=== PATIENT | male | born 1950 | race Caucasian/White ===

== ENCOUNTER 2018-05-04 20:24 | Inpatient (IN) ==
[2018-05-04] MEDS ORDERED: ONDANSETRON 4 MG/2 ML INJECTION IVP ONE (20:46)
[2018-05-04] MEDS ORDERED: FentaNYL 100 MCG/2 ML INJECTION IVP ONE (20:46)
[2018-05-04] MEDS ORDERED: PANTOPRAZOLE 40 MG INJECTION IVP ONE (20:46)
--- NOTE | 2018-05-04 20:50 | Emergency Department Report ---
GI Bleed HPI - General Chief complaint: Dizziness Stated complaint: black stool dizziness Time Seen by Provider: 05/04/18 20:46 Source: patient, family, RN notes reviewed, old records reviewed Mode of arrival: ambulatory Limitations: no limitations - History of Present Illness HPI Narrative: 68yo man presents to the ER for evaluation of an acute GI bleed. Pt has had several black, tarry stools today. In addition, pt has become dizzy and weak today. Pt is on hospice for end stage CHF, COPD, and ACS. He moved up to [place] from [place] to be with family. Pt has had two GI bleeds in the past (the first requiring 2 units PRBCs, the second required 5 units PRBCs). Pt continues to take a blood thinner and daily 81mg ASA. Is not on any GI prophylaxis for bleeds. MD complaint: melena Onset (ago): hour(s) Consistency: constant Severity: similar to previous episodes Relieving factors: none Exacerbating factors: none Context: history of GI bleed Treatments Prior to Arrival: none - Related Data Home Medications Medication Instructions Recorded Confirmed Albuterol HFA Inhaler [Ventolin 1 puff ORAL INH QID PRN 05/04/18 05/04/18 Hfa 90 mcg/actuation] Aspirin [Adult Aspirin Regimen] 81 mg PO DAILY 05/04/18 05/04/18 Clopidogrel [Plavix] 75 mg PO DAILY 05/04/18 05/04/18 Gabapentin [Neurontin] 600 mg PO TID 05/04/18 05/04/18 Hydrocodone/Acetaminophen 1 tab PO Q4H PRN 05/04/18 05/04/18 [Hydrocodon-Acetaminophn 10-325] Hydromorphone [Dilaudid] 1 - 2 mg PO Q2H PRN 05/04/18 05/04/18 Morphine Sulfate 30 mg PO BID PRN 05/04/18 05/04/18 Nitroglycerin [Nitrostat] 0.4 mg SL Q5M PRN 05/04/18 05/04/18 Ondansetron [Zofran Odt] 8 mg PO TID 05/04/18 05/04/18 Polyethylene Glycol 3350 17 gm PO DAILY 05/04/18 05/04/18 Ranolazine SR [Ranexa] 500 mg PO DAILY 05/04/18 05/04/18 Sennosides [Senna] 8.6 mg PO DAILY 05/04/18 05/04/18 Allergies Allergy/AdvReac Type Severity Reaction Status Date / Time No Known Allergies Allergy Verified 05/04/18 21:05 Review of Systems All systems: reviewed and negative except as stated Gastrointestinal: Reports: as per HPI, melena. Denies: abdominal pain, nausea, vomiting, diarrhea, constipation, hematemesis, hematochezia Neurological: Reports: as per HPI, weakness, vertigo. Denies: headache, numbness, paresthesias, confusion, abnormal gait Physical Exam - Limitations Limitations: no limitations - General General appearance: alert, in no apparent distress, cachectic - Head Head exam: atraumatic, normocephalic, normal inspection - Eye Eye exam: Present: normal appearance, PERRL, EOMI, scleral icterus - ENT ENT exam: Present: normal exam, normal oropharynx, mucous membranes moist, normal external ear exam - Neck Neck exam: Present: normal inspection, full ROM, trachea midline. Absent: tenderness - Chest Chest inspection: Present: normal inspection, symmetric chest wall rise. Absent : tenderness, rash - Respiratory Respiratory exam: Present: wheezes. Absent: normal lung sounds bilaterally, respiratory distress, stridor, prolonged expiratory phase, crackles - Cardiovascular Cardiovascular exam: Present: regular rate, normal rhythm, normal heart sounds. Absent: rubs, gallop, clicks - Abdominal Exam Abdominal exam: Present: soft, normal bowel sounds. Absent: distention, tenderness, guarding, rebound, rigidity - Rectal Exam Rectal exam: Present: deferred - Extremities Exam Extremities exam: Present: normal inspection, full ROM, normal capillary refill. Absent: tenderness, pedal edema - Skin Skin exam: Present: warm, dry, intact, pallor. Absent: rash - Neurological Exam Neurological exam: Present: alert, oriented X3, CN II-XII intact, normal gait, reflexes normal - Psychiatric Psychiatric exam: Present: flat affect Course - Consultations Consultation #1: Ronnell Telemed: Will admit as inpt. Time: 22:26 Vital Signs Pulse Rate 75 05/04/18 20:30 Respiratory Rate 20 05/04/18 20:30 Blood Pressure 167/92 H 05/04/18 20:30 Pulse Oximetry 100 05/04/18 20:30 Pulse Rate 75 05/04/18 20:30 Respiratory Rate 20 05/04/18 20:30 Blood Pressure 167/92 H 05/04/18 20:30 Pulse Oximetry 100 05/04/18 20:30 GI Bleed - MDM Narrative Medical decision making narrative: Pt with a recurrent GI bleed. Will need obs and may need txfusion. Hospitalist will admit. - Differential Diagnosis Likely: hemorrhoids, infectious diarrhea, gastritis, Upper gastrointestinal hemorrhage, Lower gastrointestinal hemorrhage, hematochezia, melena - Medical Records Attestation: I reviewed the patient's medical records. - Lab Data Attestation: I reviewed the patient's lab results. Result diagrams: 05/06/18 03:46 05/06/18 03:46 Disposition Clinical Impression: GI bleed Qualifiers: GI bleed type/associated pathology: gastric ulcer Qualified Code(s): K25.4 - Chronic or unspecified gastric ulcer with hemorrhage Disposition: To [facility] Acute Care Condition: Stable Time of Disposition: 22:32 - Seen By: physician
[2018-05-04] MEDS ORDERED: NS 1,000 ML IV SCH (21:00)
[2018-05-04] MEDS: SALINE FLUSH 10ml SYRINGE IVF PRN ×2 (21:10→22:39)
[2018-05-04] MEDS ORDERED: FentaNYL 100 MCG/2 ML INJECTION IVP PRN (22:16)
[2018-05-04] MEDS ORDERED: ONDANSETRON 4 MG/2 ML INJECTION IVP PRN (23:10)
--- NOTE | 2018-05-04 23:53 | History & Physical Report ---
History of Present Illness Date: 05/08/18 Chief complaint: abdominal pain HPI: Patient seen via telemedicine with nursing assistance on 05/04/2018 Mr. Morales is a 68 yo man with h/o hospice for CAD and ischemic CM, HTN, COPD, continued tobacco abuse, GI bleeds in the past due to PUD over 2 years ago while in [place] who presents with abdominal pain. Lives in [place], [place], but came to [facility]. Notes 3 days abd pain more below the umbilicus, N/V with last emesis yesterday and not michael blood. No fevers or chills. Orthopnea but no syncope. Daily CP with no SOB. No recent medication changes. Chronic opiod dependence for chronic back pain as well. Review of Systems All systems PM: 10-point ROS was reviewed, no additional remarkable complaints except Past Medical History Surgical History: still has GB and appendix Family History Updates: sister of CAD, mother from accident and father from cirrhosis Family History: Other (as documented) - Social History Smoking status: Current every day smoker Current occupational status: retired Current residence: Apartment/Private Home Medications Home Medications Medication Instructions Recorded Confirmed Type Albuterol HFA Inhaler [Ventolin 1 puff ORAL INH QID PRN 05/04/18 05/04/18 History Hfa 90 mcg/actuation] Gabapentin [Neurontin] 600 mg PO TID 05/04/18 05/04/18 History Hydrocodone/Acetaminophen 1 tab PO Q4H PRN 05/04/18 05/04/18 History [Hydrocodon-Acetaminophn 10-325] Hydromorphone [Dilaudid] 1 - 2 mg PO Q2H PRN 05/04/18 05/04/18 History Morphine Sulfate 30 mg PO BID PRN 05/04/18 05/04/18 History Nitroglycerin [Nitrostat] 0.4 mg SL Q5M PRN 05/04/18 05/04/18 History Ondansetron [Zofran Odt] 8 mg PO TID 05/04/18 05/04/18 History Ranolazine SR [Ranexa] 500 mg PO DAILY 05/04/18 05/04/18 History Sennosides [Senna] 8.6 mg PO DAILY 05/04/18 05/04/18 History Nicotine Patch [Nicoderm] 14 mg TD DAILY PRN #10 patch 05/08/18 Rx Pantoprazole Tab [Protonix Tab] 1 tab PO ACBID #30 tab 05/08/18 Rx Polyethylene Glycol 3350 17 gm PO DAILY PRN #0 05/08/18 05/04/18 Rx Sucralfate [Carafate] 1 gm PO ACHS #120 tab 05/08/18 Rx Allergies Allergy/AdvReac Type Severity Reaction Status Date / Time No Known Allergies Allergy Verified 05/04/18 21:05 Exam Vital Signs: Temperature 98.6 F 05/04/18 23:10 Pulse Rate 60 05/04/18 23:10 Respiratory Rate 18 05/04/18 23:10 Blood Pressure 132/79 05/04/18 23:10 Pulse Oximetry 100 05/04/18 23:10 Telemetry Rhythm: Sinus Rhythm Height/Weight/BMI: Height 1.78 m Weight 53.6 kg Body Mass Index 16.9 - Constitutional Present: no acute distress - Routine HEENT Exam Head: Present: normocephalic, atraumatic Eye: Present: EOMI, PERRL - Routine Neck Exam Present: full ROM - Routine Respiratory Exam Present: CTA bilaterally. Absent: accessory muscle use - Routine Cardiovascular Exam Present: RRR, S1, S2, no murmur - Routine Abdominal Exam Present: soft Comments: hyperactive bowel sounds and tender with no guarding - Routine Extremities Exam Absent: cyanosis, clubbing - Routine Neurological Exam Present: alert, oriented X3, CN II-XII intact Results - Labs CBC & Chem 7: 05/08/18 04:09 05/08/18 04:09 Assessment and Plan Assessment and Plan: 1. Acute abdominal pain and likely GI bleed--hydrate with repeat AM labs and may need CT and gen surgery eval in the AM. Heme test stools and dose PPI IV. Clear liquids only with prns. 2. CAD and ischemic CM--hold asa and plavix, continue other meds. On hospice for this. 3. COPD--prn nebs with no routine Spiriva, other. 4. Acute blood loss anemia with macrocytosis noted. With other lineages ok will check B12. 5. Tobacco abuse, ongoing. Prn nicotine 6. Chronic back pain with opiod dependence DNR Please see H&P from same admission. Dr. Emanuel DVT Prophylaxis: SCD's - Physician Narrative Narrative: Date: 05/04/18 Time: 2349 Hospital Course Summary Disclaimer: The visit summary below is not to be considered part of the above Progress Note.
[2018-05-04] MEDS ORDERED: ALBUTEROL/IPRATROPIUM 2.5mg-0.5mg/3ml NEB AEROSOL PRN (23:59)
[2018-05-05] MEDS: SALINE FLUSH 10ml SYRINGE IVF PRN ×2 (00:02→07:49)
[2018-05-05] MEDS: NS 1,000 ML IV SCH ×2 (00:02→07:59)
[2018-05-05] MEDS: HYDROCODONE/APAP 10 MG/325 MG TABLET PO PRN ×2 (00:08→05:28)
[2018-05-05] MEDS: MORPHINE SULFATE 2mg INJECTION IVP PRN ×3 (00:09→07:48)
[2018-05-05] MEDS: NITROGLYCERIN 0.4 MG SUBLINGUAL TABLET SL PRN ×2 (05:05→05:14)
--- NOTE | 2018-05-05 09:06 | History & Physical Report ---
History of Present Illness Date: 05/05/18 Chief complaint: Black colored stools HPI: Jhoan Morales is a 68 y/o male who has been on hospice services for the last 15 mos. for CAD, CHF, and COPD. He has lived in [facility] for the last 2 years but prior to that was living in [place]. He reports having 4 black, tarry stools over the last 3 days. He tends to be constipated at baseline. He's also had lower abdominal burning. He has had nausea/vomiting without hematemesis. He's felt weak, dizzy but denies syncope. He has a chronic "smoker's cough" and actually his sputum has now changed to clear (previously was green/yellow). He has chronic SOA and that is unchanged. He is on 2L of O2 continuously though admits he sometimes takes it off during the day. He frequently has chest pain and takes NTG. He has chronic low back pain secondary to DDD. He's lost about 40 lbs in the last 6 mos. ROS was otherwise negative: No visual changes, headaches , sinus drainage, GERD, leg/joint swelling, rashes/wounds, falls, urinary pain/ retention/frequency, unexplained bruising, anxiety/depression, sweating, fevers/ chills, palpitations. He has had 2 previous GI bleeds in the past including an ulcer around 2014. He states that he wishes to come off hospice and be treated for GI bleed with transfusions/procedures as indicated. He presented to [facility] ED for evaluation. Hgb on admit was 11.4 and by the following morning trended down to 9.9. Labs otherwise were unremarkable. He was admitted as an inpt to [facility] via the telehosp service -- please refer to the initial H&P for more information. Review of Systems All systems PM: 10-point ROS was reviewed, no additional remarkable complaints except Past Medical History Medical History Updates: CHF, ischemic cardiomyopathy. CAD, PVD. COPD on 2L O2 continuously. Chronic back pain d/t DDD. Hx of bleeding ulcer, ~2014 Surgical History: Multiple heart catheterizations, has 11 stents. B/L leg stents. EGD, colonoscopy ~2014. CABG x3 in 2002. Pacemaker - turned off Family History Updates: sister of CAD ( at age 62), mother from accident (fell in the tub and hit her head causing a head bleed), and father from cirrhosis/liver failure from EtOH abuse - unsure of ages of of mother and father. 1 brother of an infection that resulted in "yellow jaundice". 1 brother committed suicide. 2 sisters alive and well Family History: Other (as documented) - Social History Smoking status: Current every day smoker Packs per day: 0.5 Packs-years: 40 Substance use type: does not use Alcohol intake frequency: does not drink Household members: spouse Current occupational status: retired Previous occupational history: truck and transport mechanic Current residence: Apartment/Private Home Medications Home Medications Medication Instructions Recorded Confirmed Type Albuterol HFA Inhaler [Ventolin 1 puff ORAL INH QID PRN 05/04/18 05/04/18 History Hfa 90 mcg/actuation] Aspirin [Adult Aspirin Regimen] 81 mg PO DAILY 05/04/18 05/04/18 History Clopidogrel [Plavix] 75 mg PO DAILY 05/04/18 05/04/18 History Gabapentin [Neurontin] 600 mg PO TID 05/04/18 05/04/18 History Hydrocodone/Acetaminophen 1 tab PO Q4H PRN 05/04/18 05/04/18 History [Hydrocodon-Acetaminophn 10-325] Hydromorphone [Dilaudid] 1 - 2 mg PO Q2H PRN 05/04/18 05/04/18 History Morphine Sulfate 30 mg PO BID PRN 05/04/18 05/04/18 History Nitroglycerin [Nitrostat] 0.4 mg SL Q5M PRN 05/04/18 05/04/18 History Ondansetron [Zofran Odt] 8 mg PO TID 05/04/18 05/04/18 History Polyethylene Glycol 3350 17 gm PO DAILY 05/04/18 05/04/18 History Ranolazine SR [Ranexa] 500 mg PO DAILY 05/04/18 05/04/18 History Sennosides [Senna] 8.6 mg PO DAILY 05/04/18 05/04/18 History Allergies Allergy/AdvReac Type Severity Reaction Status Date / Time No Known Allergies Allergy Verified 05/04/18 21:05 Exam Vital Signs: Temperature 97.6 F 05/05/18 08:26 Pulse Rate 64 05/05/18 08:26 Respiratory Rate 18 05/05/18 08:26 Blood Pressure 132/85 05/05/18 08:26 Pulse Oximetry 100 05/05/18 08:26 Height/Weight/BMI: Height 1.78 m Weight 78.2 kg Body Mass Index 16.9 - Constitutional Present: no acute distress, well nourished, well developed, thin - Routine HEENT Exam Head: Present: normocephalic Eye: Present: PERRL. Absent: scleral injection ENT: Present: mucous membranes moist, oropharynx clear. Absent: dentition normal - Routine Neck Exam Present: supple - Routine Respiratory Exam Present: CTA bilaterally - Routine Cardiovascular Exam Present: RRR, S1, S2 Comments: pacemaker left chest sternotomy scar - Routine Abdominal Exam Present: soft, normoactive bowel sounds, tenderness (mild suprapubic), non distended - Routine Extremities Exam Present: no edema - Routine Skin Exam Present: intact, dry, pallor, warm - Routine Neurological Exam Present: alert, oriented X3, CN II-XII intact, moving all extremities, vision grossly intact, hearing grossly intact, normal speech. Absent: sensory deficit , motor deficit, altered mental status, facial asymmetry - Routine Psychiatric Exam Present: normal affect, normal thought process, cooperative Results - Labs CBC & Chem 7: 05/05/18 11:53 05/05/18 04:07 Assessment and Plan (1) GI bleed Current visit: Yes Status: Acute (2) Acute blood loss anemia Current visit: Yes Status: Acute Assessment and Plan: Assessment GI bleed ABLA, macrocytic anemia End stage CHF, ischemic cardiomyopathy, CAD - on hospice until 05/04/18 PVD COPD on 2L O2 continuously Chronic back pain d/t DDD Hx of bleeding ulcer, ~2014 Tobacco use Plan Admit, inpt status under the hosp service. Clear liquid diet. Consult Dr. Comer (discussed case with him). Hold ASA, Plavix. Trend hgb. Vit B12 ordered d/t macrocytosis. Protonix BID. DC IVF d/t significant cardiac hx. Resume meds for angina/chronic pain. Pt declined tobacco cessation. Nicotine patch PRN. Neb treatments PRN. Call placed to Dr. Lisa's office in [place] for more information regarding his medical diagnoses and to determine overall risk for anesthesia in the event EGD is indicated. DNR status. Hospice care revoked to treat this acute condition but likely will inquire about re-enrolling upon discharge. Note: Pacemaker has been deactivated. 05/05/2018-11:59 AM-I examined the patient independently. I reviewed this chart , the patient history, and the PAYABLE PROCESSOR's/PA's documented findings as above. We discussed and formulated the assessment and plan as above with the additions below.-Dr. Emanuel The patient states he has not felt well for the past 3 days or so. He's had a couple episodes of emesis which looked like bile. No blood or coffee-ground appearance. He has had 4 episodes of melena but no red bloody stool. He has chronic shortness of breath which is unchanged. He's felt a little lightheaded when he stands up and weak for about a month. He has chest pain through 4 times a week but noticed chest pain yesterday and this morning and he thinks this is a little more frequent than usual. He states he is on hospice for his heart disease and was told there was nothing else that could be done other than medications. His last stent was about 15 months ago. He has history of peripheral vascular disease and also has history of what sounds like gastric ulcer requiring cauterization. He has been taking aspirin and Plavix as prescribed but is not taking any other NSAIDs. He is on chronic narcotics for pain. States he does have COPD and is chronically on 2 L of oxygen. He is not on breathing treatments. On exam he is alert and oriented and in no acute distress. HEENT reveals pupils to be equal and sclerae are anicteric. Or paroxysmal moist. Neck is supple. Chest reveals some mild coarse breath sounds and he coughs with deep inspiration. Cardiovascular reveals a regular rate and rhythm without significant murmur. Abdomen is soft and nondistended. He has positive bowel sounds. He has some mild tenderness in the suprapubic area. He denies any dysuria. Extremities are free of edema. Skin is warm and dry and without rashes. Hemoglobin on admission was 11.4. He has been on IV fluids. Most recent hemoglobin this morning was 9.9. Repeat hemoglobin is pending. INR and PTT were normal. Impression GI bleed with melena, history of gastric ulcer, significant atherosclerosis, patient is at risk for gastric or duodenal ulcer and also at risk for ischemic colitis with his known peripheral vascular disease. Nausea and vomiting Lower abdominal pain Coronary artery disease for which she has had 11 stents, the last one 15 months ago. He is currently on hospice for heart disease. Ischemic cardiomyopathy Probable COPD-currently on 2 L Plan Clear liquid diet. Hold aspirin and Plavix for now. Check P2 Y 12. Consult Dr. Hernandez. IV Protonix. Have blood on hold. Transfuse if needed. I would likely give him blood if hemoglobin is less than 9 and certainly if less than 8 given his coronary artery disease. DC IV fluids and monitor for fluid overload. Recheck basic metabolic and CBC tomorrow. We'll check a UA regarding suprapubic pain, although this pain is likely related to his GI bleeding DVT Prophylaxis: SCD's GI Prophylaxis: Protonix Resuscitation Status: Do Not Resuscitate - Physician Narrative Narrative: Date: 05/05/18 Time: 900 Hospital Course Summary Disclaimer: The visit summary below is not to be considered part of the above Progress Note. Hospital Course: 05/04/18 1. Acute abdominal pain and likely GI bleed--hydrate with repeat AM labs and may need CT and gen surgery eval in the AM. Heme test stools and dose PPI IV. Clear liquids only with prns. 2. CAD and ischemic CM--hold asa and plavix, continue other meds. On hospice for this. 3. COPD--prn nebs with no routine Spiriva, other. 4. Acute blood loss anemia with macrocytosis noted. With other lineages ok will check B12. 5. Tobacco abuse, ongoing. Prn nicotine 6. Chronic back pain with opioid dependence DNR 05/05/18 Admit, inpt status under the hosp service. Clear liquid diet. Consult Dr. Comer (discussed case with him). Hold ASA, Plavix. Trend hgb. Vit B12 ordered d/t macrocytosis. Protonix BID. DC IVF d/t significant cardiac hx. Resume meds for angina/chronic pain. Pt declined tobacco cessation. Nicotine patch PRN. Neb treatments PRN. Call placed to Dr. Lisa's office in [place] for more information regarding his medical diagnoses and to determine overall risk for anesthesia in the event EGD is indicated. DNR status. Hospice care revoked to treat this acute condition but likely will inquire about re-enrolling upon discharge. Note: Pacemaker has been deactivated.
[2018-05-05] MEDS: RANOLAZINE 500 MG PO SCH (09:20)
[2018-05-05] MEDS: PANTOPRAZOLE 40 MG INJECTION IVP SCH ×2 (09:20→21:09)
[2018-05-05] MEDS: GABAPENTIN 600 MG TABLET PO SCH ×3 (09:21→21:09)
[2018-05-05] MEDS: NICOTINE 14 MG PATCH TD PRN (09:21)
[2018-05-05] MEDS: HYDROMORPHONE 2 MG TABLET PO PRN ×3 (09:21→21:09)
[2018-05-05] MEDS: NICOTINE PATCH REMOVAL TD SCH ×2 (09:22→17:21)
--- NOTE | 2018-05-05 16:34 | XRay Report ---
Indication: CAD XR chest 1V: Comparison: None Technique: AP upright portable chest Findings: Patient shows prior median sternotomy and a permanent pacemaker with normal heart and central vascularity. No acute pulmonary findings are seen. Lungs are somewhat hyperaerated. No acute bony findings. Impression: 1. Postop changes of previous coronary artery bypass grafting and a permanent pacemaker without acute cardiac decompensation. 2. Mildly hyperaerated but clear lungs .
--- NOTE | 2018-05-05 16:42 | Consultation ---
DATE OF CONSULTATION 05/05/2018 HISTORY OF PRESENT ILLNESS This patient is 68 years old. He noticed the appearance of some black stools about three days ago. He was experiencing weakness, fatigue and dizziness. The patient was brought to [facility] emergency room for evaluation of these symptoms on the evening of 05/04/2018. Hemoglobin was 10.2 at evaluation at the emergency room. Hematocrit was 30.8. The patient states that he has been having some lower abdominal pain located at a level below the level of the umbilicus for the last 3-4 days. He denies any recent hematemesis or hematochezia. The patient was admitted to [facility] to the hospitalist service from the emergency room on the evening of 05/04/2018. The patient states that he has had two episodes of acute upper gastrointestinal tract bleeding associated with peptic ulcer disease in the past. This was at sometime around 2014. The patient states that this was two or three years ago in [place]. The patient was transfused with two units of packed red blood cells with the first episode of acute upper gastrointestinal tract bleeding. The patient was transfused with five units of packed red blood cells at the second episode of acute upper gastrointestinal tract bleeding. The patient states that he did undergo esophagogastroduodenoscopy with cauterization of an upper gastrointestinal tract bleeding point with one of these episodes. He states that the second episode of acute upper gastrointestinal tract bleeding from peptic ulcer was treated with medication. The patient did take some medication for treatment of peptic ulcer disease for a while after the most recent episode and then quit taking this medication. He has not been taking any recent medication for treatment of peptic ulcer disease. The patient states that he did undergo esophagogastroduodenoscopy two or three years ago in [place] at the time of these episodes of acute upper gastrointestinal tract bleeding. The patient states that his last colonoscopy procedure was about three years ago in [place]. The patient states he has had no previous abdominal operations. The patient did undergo a triple coronary artery bypass operation in 1999 in [place]. The patient states that he has had previous cardiac catheterization procedures with placement of 11 coronary artery stents in his heart. Some of these cardiac catheterization with placement of coronary artery stent procedures were performed in [place]. Some were performed in [place]. The patient states that the most recent cardiac catheterization with placement of coronary artery stent was performed in [place], [place] about 1-1/2 to 2 years ago. He believes this was at the [facility]. The patient states he has been told that the entire back wall of his heart muscle is . The patient is on hospice care at this time due to his cardiac disease. The patient has been anticoagulated with Plavix and aspirin prior to this hospitalization. The Plavix has been held since the patient was admitted to the hospital. PHYSICAL EXAMINATION VITAL SIGNS: Temperature is 97.7 degrees Fahrenheit oral. Pulse is 64. Respiratory rate is 18. Blood pressure is 140/79. Oxygen saturation is 100% with the patient receiving oxygen at 1 liter per minute by nasal cannula. Height is 1.78 meters. Weight is 78.2 kg. BMI is 24.7 kg/m2. ABDOMEN: There are no old incision scars. The abdomen is soft. The patient does have some bilateral lower abdominal tenderness. There is some right lower quadrant tenderness and left lower quadrant tenderness. The tenderness seems a little worse at the right lower quadrant than at the left lower quadrant. There is no left upper quadrant abdominal tenderness. There is no epigastric abdominal tenderness. RECTUM: The patient had some hard stool in the rectal vault at this time. There is a very small amount of old black blood in the rectal vault. No rectal masses. No bright red blood at rectal examination. LABORATORY DATA Hemoglobin was 11.4 and hematocrit was 34.4 at 2056 hours on 05/04/2018. Hemoglobin was 10.2 and hematocrit was 30.8 at 2154 hours on 05/04/2018. Hemoglobin was 9.9 and hematocrit was 30.2 at 0407 hours on 05/05/2018. White blood cell count was 8400 at this time. Platelet count was 319,000 at this time. Repeat hemoglobin was 10.2 at 1153 hours on 05/05/2018. IMPRESSION 1. Melena of three days' duration. 2. Anticoagulation with Plavix. 3. Anemia possibly due to gastrointestinal tract blood loss. 4. Two previous episodes of acute upper gastrointestinal tract bleeding due to peptic ulcer disease. 5. Acute lower abdominal pain and tenderness. 6. End-stage cardiac disease with coronary artery disease, congestive heart failure and ischemic cardiomyopathy. The patient has been on hospice care because of this end-stage cardiac disease. 7. Constipation. 8. Nicotine dependence. 9. Chronic obstructive pulmonary disease. 10. Chronic back pain. RECOMMENDATIONS 1. I agree with the intravenous Protonix which the patient is receiving at this time. 2. Continue to monitor hemoglobin and hematocrit. 3. The patient could be scheduled to undergo esophagogastroduodenoscopy for further evaluation of this melena if he is thought to be an acceptable candidate for this procedure from the cardiac standpoint. PATIENT EDUCATION I did talk with the patient about the possibility of undergoing esophagogastroduodenoscopy. The nature of this procedure was reviewed with the patient. Expected benefits were reviewed. Alternatives were reviewed. Potential risks and complications were reviewed including anesthetic risk, cardiac risk and risk of induced bleeding from the procedure. Questions were solicited from the patient. All of his questions were answered. PARUL
[2018-05-06] MEDS: SALINE FLUSH 10ml SYRINGE IVF PRN (08:17)
[2018-05-06] MEDS: PANTOPRAZOLE 40 MG INJECTION IVP SCH ×2 (08:17→20:43)
[2018-05-06] MEDS: RANOLAZINE 500 MG PO SCH (08:18)
[2018-05-06] MEDS: GABAPENTIN 600 MG TABLET PO SCH ×3 (08:18→20:43)
[2018-05-06] MEDS: SENNOSIDES 8.6 MG TABLET PO SCH (08:18)
[2018-05-06] MEDS: NICOTINE 14 MG PATCH TD PRN (08:21)
[2018-05-06] MEDS: NICOTINE PATCH REMOVAL TD SCH (08:22)
--- NOTE | 2018-05-06 09:34 | Cardiology Consult Note ---
History of Present Illness Consult date: 05/05/18 Requesting physician: Kim Emanuel Consult reason: congestive heart failure, pre-op evaluation Chief complaint: abdominal pain History of present illness: Jhoan is a 68 year old male with and extensive history of CAD, reportedly with 11 stents who has been on hospice services for the last 15 mos. for CAD, CHF, and COPD. He frequently has chest pain and takes NTG. He is on 2L of O2 continuously though admits he sometimes takes it off during the day. He presented to [facility] for evaluation of 4 black, tarry stools over the last 3 days with lower abdominal burning, nausea/vomiting without hematemesis. He's felt weak, dizzy but denies syncope. He has had 2 previous GI bleeds in the past including an ulcer around 2014. Hgb 11.4 on admit to [facility] but trended down to 9.9. He wishes to come off hospice and be treated for GI bleed with transfusions/procedures as indicated. He reports chronic "smoker's cough" with clear sputum, chronic SOA that is unchanged, chronic low back pain secondary to DDD. He has reportedly lost 40 lbs in the last [address] Glasgow is consulted for preprocedural evaluation of cardiac risk factors for endoscopy and we appreciate the consult. He is examined in his room on the Medical unit. He is laying flat in no distress on his usual 1L/ [place] of O2. States his chest pain is about a 3/10 and is constant most of the time. He reports his device is "turned off", referring to the ICD. Review of Systems - Constitutional Constitutional: Present: fatigue, weakness, weight loss. Absent: chills, fever( s) - EENMT Eyes: Absent: change in vision Balance: Absent: vertigo Mouth/Throat: Absent: sore throat - Cardiovascular Cardiovascular: Present: chest pain (frequently at rest), dyspnea on exertion. Absent: palpitations, syncope, orthopnea, edema Vascular: Absent: pedal edema - Respiratory Respiratory: Present: dyspnea on exertion. Absent: cough, dyspnea - Gastrointestinal Gastrointestinal: Present: abdominal pain, diarrhea, nausea. Absent: melena - Genitourinary Genitourinary: Absent: dysuria - Musculoskeletal Musculoskeletal: Present: back pain - Integumentary/Breasts Integumentary: Absent: rash - Neurological Neurological: Present: dizziness - Endocrine Endocrine: Absent: palpitations PFSH Patient Stated Medical History Cataracts Yes: both eyes Other HEENT Yes Angina Yes Congestive Heart Failure Yes Coronary Artery Disease Yes Myocardial Infarction Yes Other Cardiology Yes: triple bypass 1999 Chronic Obstructive Pulmonary Yes Disease (COPD) Pneumonia Yes Ulcer Yes Hx Kidney Stones Yes Blood Transfusions Yes Medical History Updates: CHF, ischemic cardiomyopathy. CAD, PVD. COPD on 2L O2 continuously. Chronic back pain d/t DDD. Hx of bleeding ulcer, ~2014 Surgical History: Multiple heart catheterizations, has 11 stents. B/L leg stents. EGD, colonoscopy ~2014. CABG x3 in 2002. Pacemaker - turned off Family History Updates: sister of CAD ( at age 62), mother from accident (fell in the tub and hit her head causing a head bleed), and father from cirrhosis/liver failure from EtOH abuse - unsure of ages of of mother and father. 1 brother of an infection that resulted in "yellow jaundice". 1 brother committed suicide. 2 sisters alive and well - Social History Smoking status: Current every day smoker Packs per day: 0.5 Packs-years: 40 Substance use type: does not use Alcohol intake frequency: does not drink Household members: spouse Current occupational status: retired Previous occupational history: floor installation mechanic Current residence: Apartment/Private Home Medications Home Medications Medication Instructions Recorded Confirmed Type Albuterol HFA Inhaler [Ventolin 1 puff ORAL INH QID PRN 05/04/18 05/04/18 History Hfa 90 mcg/actuation] Gabapentin [Neurontin] 600 mg PO TID 05/04/18 05/04/18 History Hydrocodone/Acetaminophen 1 tab PO Q4H PRN 05/04/18 05/04/18 History [Hydrocodon-Acetaminophn 10-325] Hydromorphone [Dilaudid] 1 - 2 mg PO Q2H PRN 05/04/18 05/04/18 History Morphine Sulfate 30 mg PO BID PRN 05/04/18 05/04/18 History Nitroglycerin [Nitrostat] 0.4 mg SL Q5M PRN 05/04/18 05/04/18 History Ondansetron [Zofran Odt] 8 mg PO TID 05/04/18 05/04/18 History Ranolazine SR [Ranexa] 500 mg PO DAILY 05/04/18 05/04/18 History Sennosides [Senna] 8.6 mg PO DAILY 05/04/18 05/04/18 History Nicotine Patch [Nicoderm] 14 mg TD DAILY PRN #10 patch 05/08/18 Rx Pantoprazole Tab [Protonix Tab] 1 tab PO ACBID #30 tab 05/08/18 Rx Polyethylene Glycol 3350 17 gm PO DAILY PRN #0 05/08/18 05/04/18 Rx Sucralfate [Carafate] 1 gm PO ACHS #120 tab 05/08/18 Rx Allergies Allergy/AdvReac Type Severity Reaction Status Date / Time No Known Allergies Allergy Verified 05/04/18 21:05 Exam Vital signs: Temperature 97.5 F 05/06/18 07:38 Pulse Rate 62 05/06/18 07:38 Respiratory Rate 20 05/06/18 07:38 Blood Pressure 121/76 05/06/18 07:38 Pulse Oximetry 98 05/06/18 07:38 - Constitutional no acute distress, well nourished, cooperative - Routine HEENT Exam Head: Present: normocephalic ENT: Present: mucous membranes moist - Routine Neck Exam Absent: JVD, carotid bruit - Routine Chest/Breast/Axilla Exam Chest wall: Present: pacemaker. Absent: tenderness - Routine Respiratory Exam Present: CTA bilaterally. Absent: rales, wheezes - Routine Cardiovascular Exam Present: RRR, no murmur. Absent: JVD - Routine Abdominal Exam Present: soft, non tender - Routine Extremities Exam Present: no edema - Routine Skin Exam Present: intact, dry, warm - Routine Neurological Exam Present: alert, oriented X3 - Routine Psychiatric Exam Present: normal affect, normal thought process Results 05/08/18 04:09 05/08/18 04:09 CBC 05/05/18 05/05/18 05/06/18 Range/Units 11:53 20:10 03:46 Hgb 10.2 L 10.0 L 11.0 L (13.5-17.5) GM/DL Comprehensive Metabolic Panel 05/06/18 Range/Units 03:46 Sodium 143 (136-146) MEQ/L Potassium 4.9 D (3.6-5) MEQ/L Chloride 110 H (98-107) MEQ/L Carbon Dioxide 29 (22-30) MEQ/L BUN 9.0 D (9-20) MG/DL Creatinine 1.1 (0.8-1.5) mg/dL Glucose 81 (75-110) MG/DL Calcium 8.7 (8.4-10.2) MG/DL Intake and Output 05/05/18 05/06/18 05/06/18 22:59 06:59 14:59 Intake Total 360 / 360 350 / 350 Output Total 1200 / 1200 1300 / 1300 Balance -840 / -840 -950 / -950 Intake: Oral 360 / 360 350 / 350 Output: Urine 1200 / 1200 1300 / 1300 Other: Urine Appearance Clear Clear Urine Color Yellow Pale Yellow Urine Odor Normal Normal # Voids 1 1 Weight 117 lb 4.575 oz Patient Weight 05/07/18 06:59 Weight 117 lb 4.575 oz - Imaging and Cardiology Imaging & Cardiology Narrative: Date of Exam: 05/05/18 Ordering Provider: Jessie Goyal APRN Type of Exam(s): XR chest 1V Reason for Exam(s): CAD Indication: CAD XR chest 1V: Comparison: None Technique: AP upright portable chest Findings: Patient shows prior median sternotomy and a permanent pacemaker with normal heart and central vascularity. No acute pulmonary findings are seen. Lungs are somewhat hyperaerated. No acute bony findings. Impression: 1. Postop changes of previous coronary artery bypass grafting and a permanent pacemaker without acute cardiac decompensation. 2. Mildly hyperaerated but clear lungs . 05/06/18 14:01 05/08/18 11:33 Date of Exam: 05/05/18 Type of Exam(s): US echo doppler complete DATE OF PROCEDURE 05/05/2018 PROCEDURE PERFORMED Transthoracic echocardiography, M-mode assessment, full color spectral Doppler assessment. FINDINGS 1. LEFT VENTRICLE. Left ventricle is mildly dilated. Normal left ventricular wall thickness noted. Left ventricular ejection fraction is moderately reduced , estimated left ventricular ejection fraction is about 35-40%. There is mid and apical anteroseptal akinesis noted and apical akinesis noted. Grade II diastolic dysfunction noted suggestive of elevated left atrial pressure and elevated left ventricular end diastolic pressure. 2. RIGHT VENTRICLE. Right ventricle appears normal in size. Normal RV wall thickness noted with normal right ventricular systolic function noted. There is device wire noted in the right ventricle. 3. RIGHT ATRIUM. Right atrium appears normal in size. There is a device wire noted in the right atrium. 4. LEFT ATRIUM. Left atrium appears mildly dilated. 5. MITRAL VALVE. Mitral valve appears structurally normal. Mild annular dilatation noted. Relative anterior mitral leaflet prolapse noted due to tethering of the posterior mitral leaflet. There is moderate mitral regurgitation noted which is eccentric, directed posteriorly and no significant mitral stenosis. 6. AORTIC VALVE. Aortic valve appears structurally normal. No significant aortic stenosis noted. No significant aortic regurgitation noted. 7. TRICUSPID VALVE. Tricuspid valve appears structurally normal. There is mild tricuspid regurgitation noted. 8. PULMONIC VALVE. Pulmonic valve poorly visualized on today's study. Trivial pulmonic regurgitation noted. 9. IVC. Inferior vena cava is mildly dilated. Normal respirophasic variation noted suggestive of only mildly elevated right atrial pressure. 10. PULMONARY ARTERY. Pulmonary artery pressure significantly elevated, estimated pulmonary artery systolic pressure of 50-55 mmHg. CONCLUSION 1. Moderate reduction of LV systolic function. Estimated LVEF of 35-40%. 2. Normal RV systolic function. 3. Moderate mitral regurgitation. 4. Significantly elevated pulmonary artery systolic pressure with estimated pulmonary artery systolic pressure of 50-55 mmHg. EKG interpretations - ME, pacemaker, normal Myocardial infarction: septal ME (old age or indeterminate), anterior ME (old age or indeterminate) Pacemaker: atrial pacing w/capture (except when refractory) Assessment and Plan - Assessment and Plan (1) GI bleed Current visit: Yes Status: Acute Patient is aware of risks of anesthesia with his degree of coronary disease. He is a high risk due to severe CAD, however if endoscopy is necessary to diagnose and treat bleeding then proceed and we will follow along in the case of complications. (2) Coronary arteriosclerosis after coronary artery bypass grafting Current visit: Yes Status: Chronic CAD with CABG 17 years ago - Multiple HCs with stent placements, most recent 01/22/2017 Lt circ and RCA - Has occasional chest pain relieved by nitro - Aspirin and Plavix on hold due to GI bleed (3) Ischemic cardiomyopathy Current visit: Yes Status: Chronic - 2D echo pending, last known EF 35-40% - Has [employer] AICD, interrogate (4) Presence of automatic implantable cardioverter-defibrillator Problem details: [employer] Current visit: Yes Status: Chronic (5) Atherosclerosis of [place] artery of both lower extremities Current visit: Yes Status: Chronic Multiple LE interventions/ peripheral stents (6) HTN (hypertension) Current visit: Yes Status: Chronic (7) COPD (chronic obstructive pulmonary disease) Current visit: Yes Status: Chronic - Assessment and Plan GI bleed Current visit: Yes Status: Acute - Patient is aware of risks of anesthesia with his degree of coronary disease. He is a high risk due to severe CAD, however if endoscopy is necessary to diagnose and treat bleeding then proceed and we will follow along in the case of complications. Coronary arteriosclerosis after coronary artery bypass grafting Current visit: Yes Status: Chronic - CAD with CABG 17 years ago - Multiple HCs with stent placements, most recent 01/22/2017 Lt circ and RCA - Has occasional chest pain relieved by nitro - Aspirin and Plavix on hold due to GI bleed Ischemic cardiomyopathy Current visit: Yes Status: Chronic - 2D echo pending, last known EF 35-40% - Has [employer] AICD, interrogate Presence of automatic implantable cardioverter-defibrillator Problem details: [employer] Current visit: Yes Status: Chronic Atherosclerosis of [place] artery of both lower extremities Current visit: Yes Status: Chronic - Multiple LE interventions/ peripheral stents HTN (hypertension) Current visit: Yes Status: Chronic COPD (chronic obstructive pulmonary disease) Current visit: Yes Status: Chronic - per attending Thank you for allowing us to participate in the care of this patient. Hospital Course Summary Disclaimer: The visit summary below is not to be considered part of the above Progress Note. Hospital Course: 05/04/18 1. Acute abdominal pain and likely GI bleed--hydrate with repeat AM labs and may need CT and gen surgery eval in the AM. Heme test stools and dose PPI IV. Clear liquids only with prns. 2. CAD and ischemic CM--hold asa and plavix, continue other meds. On hospice for this. 3. COPD--prn nebs with no routine Spiriva, other. 4. Acute blood loss anemia with macrocytosis noted. With other lineages ok will check B12. 5. Tobacco abuse, ongoing. Prn nicotine 6. Chronic back pain with opioid dependence DNR 05/05/18 Admit, inpt status under the hosp service. Clear liquid diet. Consult Dr. Comer (discussed case with him). Hold ASA, Plavix. Trend hgb. Vit B12 ordered d/t macrocytosis. Protonix BID. DC IVF d/t significant cardiac hx. Resume meds for angina/chronic pain. Pt declined tobacco cessation. Nicotine patch PRN. Neb treatments PRN. Call placed to Dr. Lisa's office in [place] for more information regarding his medical diagnoses and to determine overall risk for anesthesia in the event EGD is indicated. DNR status. Hospice care revoked to treat this acute condition but likely will inquire about re-enrolling upon discharge. Note: Pacemaker has been deactivated.
[2018-05-06] MEDS: NITROGLYCERIN 0.4 MG SUBLINGUAL TABLET SL PRN (12:31)
[2018-05-06] MEDS: HYDROMORPHONE 2 MG TABLET PO PRN (14:09)
--- NOTE | 2018-05-06 14:31 | Echocardiogram ---
DATE OF PROCEDURE 05/05/2018 PROCEDURE PERFORMED Transthoracic echocardiography, M-mode assessment, full color spectral Doppler assessment. FINDINGS 1. LEFT VENTRICLE. Left ventricle is mildly dilated. Normal left ventricular wall thickness noted. Left ventricular ejection fraction is moderately reduced , estimated left ventricular ejection fraction is about 35-40%. There is mid and apical anteroseptal akinesis noted and apical akinesis noted. Grade II diastolic dysfunction noted suggestive of elevated left atrial pressure and elevated left ventricular end diastolic pressure. 2. RIGHT VENTRICLE. Right ventricle appears normal in size. Normal RV wall thickness noted with normal right ventricular systolic function noted. There is device wire noted in the right ventricle. 3. RIGHT ATRIUM. Right atrium appears normal in size. There is a device wire noted in the right atrium. 4. LEFT ATRIUM. Left atrium appears mildly dilated. 5. MITRAL VALVE. Mitral valve appears structurally normal. Mild annular dilatation noted. Relative anterior mitral leaflet prolapse noted due to tethering of the posterior mitral leaflet. There is moderate mitral regurgitation noted which is eccentric, directed posteriorly and no significant mitral stenosis. 6. AORTIC VALVE. Aortic valve appears structurally normal. No significant aortic stenosis noted. No significant aortic regurgitation noted. 7. TRICUSPID VALVE. Tricuspid valve appears structurally normal. There is mild tricuspid regurgitation noted. 8. PULMONIC VALVE. Pulmonic valve poorly visualized on today's study. Trivial pulmonic regurgitation noted. 9. IVC. Inferior vena cava is mildly dilated. Normal respirophasic variation noted suggestive of only mildly elevated right atrial pressure. 10. PULMONARY ARTERY. Pulmonary artery pressure significantly elevated, estimated pulmonary artery systolic pressure of 50-55 mmHg. CONCLUSION 1. Moderate reduction of LV systolic function. Estimated LVEF of 35-40%. 2. Normal RV systolic function. 3. Moderate mitral regurgitation. 4. Significantly elevated pulmonary artery systolic pressure with estimated pulmonary artery systolic pressure of 50-55 mmHg. MTDD
--- NOTE | 2018-05-06 16:44 | Progress Note ---
- Date 05/06/18 Subjective: Mr Morales is seen today in follow up this afternoon with his at his side in the bed. He states that he is feeling good other than being hungry as he remains NPO. Denies having chest pain, shortness of breath on his baseline oxygen. . No bloody,black stools, abdominal pain or nausea today. Vital signs stable. Hgb 10.8. Objective Vital signs: Temperature 98.5 F 05/06/18 16:35 Pulse Rate 66 05/06/18 16:35 Respiratory Rate 18 05/06/18 16:35 Blood Pressure 135/1 05/06/18 16:35 Pulse Oximetry 98 05/06/18 16:35 Height/Weight/BMI: Height 1.78 m Weight 53.2 kg Body Mass Index 24.7 - Constitutional Present: no acute distress, well nourished, well developed - Routine HEENT Exam Eye: Present: EOMI ENT: Present: mucous membranes moist, dentition normal - Routine Respiratory Exam Present: CTA bilaterally. Absent: wheezes - Routine Cardiovascular Exam Present: RRR, S1, S2. Absent: murmur - Routine Abdominal Exam Present: soft, normoactive bowel sounds, non distended. Absent: tenderness - Routine Back/Spine/Pelvis Exam Back/Spine: Present: full ROM - Routine Skin Exam Present: intact, dry, warm - Routine Neurological Exam Present: alert, oriented X3, CN II-XII intact - Routine Lymphatic Exam Lymphatic: Absent: adenopathy - Routine Psychiatric Exam Present: normal affect, cooperative Results - Labs CBC & Chem 7: 05/06/18 11:37 05/06/18 03:46 Assessment and Plan Assessment and Plan: Assessment GI bleed ABLA, macrocytic anemia End stage CHF, ischemic cardiomyopathy, CAD - on hospice until 05/04/18 PVD COPD on 2L O2 continuously Chronic back pain d/t DDD Hx of bleeding ulcer, ~2014 Tobacco use Plan Hgb monitored- remains stable at 10.8 No active bleeding. ASA and Plavix remains on hold Remains on BID Protonix for GI protection He was seen by cardiology today and patient does understand increased risk of endoscopic procedure given severity of coronary artery distress Will wait to see recommendations by Dr Comer regarding plan for endoscopy Monitor for active GI bleeding Continue on chronic medications and oxygen. Case discussed with attending Dr Emanuel 05/06/2018-5:30 PM-I examined the patient independently. I reviewed this chart, the patient history, and the ELECTRONIC TECHNICIAN's/PA's documented findings as above. We discussed and formulated the assessment and plan as above with the additions below.-Dr. Emanuel Patient was seen this afternoon in his room accompanied by his . He states he's feeling okay. He had one episode of chest pain that resolved with nitroglycerin. He denies shortness of breath. He states he still has a little bit of abdominal pain, but it is better. He has not had any stools today. He has not had any nausea or vomiting. He is currently nothing by mouth. On exam he is alert and in no acute distress. Chest is clear to auscultation anteriorly. Cardiovascular reveals a regular rate and rhythm. Abdomen is soft and nontender with positive bowel sounds. Extremities are free of edema. SCDs are on. Impression and plan Coronary artery [id number] -he has stable angina Cardiomyopathy GI bleed Anemia-currently stable Will discuss with Dr. Comer. Cardiology note reviewed and appreciated. Continue to hold aspirin and Plavix. - Physician Narrative Narrative: Date: 05/06/18 Time: 1640 Hospital Course Summary Disclaimer: The visit summary below is not to be considered part of the above Progress Note. Hospital Course: 05/04/18 1. Acute abdominal pain and likely GI bleed--hydrate with repeat AM labs and may need CT and gen surgery eval in the AM. Heme test stools and dose PPI IV. Clear liquids only with prns. 2. CAD and ischemic CM--hold asa and plavix, continue other meds. On hospice for this. 3. COPD--prn nebs with no routine Spiriva, other. 4. Acute blood loss anemia with macrocytosis noted. With other lineages ok will check B12. 5. Tobacco abuse, ongoing. Prn nicotine 6. Chronic back pain with opioid dependence DNR 05/05/18 Admit, inpt status under the hosp service. Clear liquid diet. Consult Dr. Comer (discussed case with him). Hold ASA, Plavix. Trend hgb. Vit B12 ordered d/t macrocytosis. Protonix BID. DC IVF d/t significant cardiac hx. Resume meds for angina/chronic pain. Pt declined tobacco cessation. Nicotine patch PRN. Neb treatments PRN. Call placed to Dr. Lisa's office in [place] for more information regarding his medical diagnoses and to determine overall risk for anesthesia in the event EGD is indicated. DNR status. Hospice care revoked to treat this acute condition but likely will inquire about re-enrolling upon discharge. Note: Pacemaker has been deactivated. 05/06/18 Hgb monitored- remains stable at 10.8 No active bleeding. ASA and Plavix remains on hold Remains on BID Protonix for GI protection He was seen by cardiology today and patient does understand increased risk of endoscopic procedure given severity of coronary artery distress Will wait to see recommendations by Dr Comer regarding plan for endoscopy Monitor for active GI bleeding Continue on chronic medications and oxygen. Case discussed with attending Dr Emanuel
[2018-05-06] MEDS: HYDROMORPHONE 2 MG/ML INJECTION IVP PRN (21:07)
[2018-05-07] MEDS: HYDROMORPHONE 2 MG/ML INJECTION IVP PRN ×6 (00:04→20:48)
--- NOTE | 2018-05-07 08:27 | Anesthesia Preoperative Report ---
Anesthesia Preoperative Record - Date and Time Date: 05/07/18 Preoperative Diagnosis: GI Bleed Proposed Procedure: EGD NPO Since Date: 05/06/18 NPO Since Time: 23:00 Allergies/Adverse Reactions: Allergies Allergy/AdvReac Type Severity Reaction Status Date / Time No Known Allergies Allergy Verified 05/04/18 21:05 - Vital Signs Vital Signs: Temperature 98.1 F 05/07/18 08:20 Pulse Rate 67 05/07/18 08:20 Respiratory Rate 14 05/07/18 08:20 Blood Pressure 159/88 H 05/07/18 08:20 Pulse Oximetry 100 05/07/18 08:20 Height and Weight: Height 5 ft 10 in Weight 53.2 kg Body Mass Index 24.7 - Medications Inpatient Medications: Current Medications Albuterol/Ipratropium (Duoneb) 3 ml AEROSOL RTQID PRN Gabapentin (Neurontin) 600 mg PO TID [facility] Last Admin: 05/06/18 20:43 Dose: 600 mg Hydromorphone HCl (Dilaudid) 1 mg PO Q4H PRN PRN Reason: Pain Last Admin: 05/06/18 14:09 Dose: 1 mg Hydromorphone HCl (Dilaudid) 1 mg IVP Q3H PRN PRN Reason: Pain Last Admin: 05/07/18 07:48 Dose: 1 mg Morphine Sulfate (Ms Contin) 30 mg PO BID PRN PRN Reason: Pain Last Admin: 05/06/18 08:18 Dose: 30 mg Nicotine (Nicoderm) 14 mg TD DAILY PRN Last Admin: 05/06/18 08:21 Dose: 14 mg Nicotine (Nicotine Patch Removal) 1 removal TD DAILY [facility] Last Admin: 05/06/18 08:22 Dose: 1 removal Nitroglycerin (Nitrostat) 0.4 mg SL Q5M PRN PRN Reason: Chest pain Last Admin: 05/06/18 12:31 Dose: 0.4 mg Ondansetron HCl (Zofran) 4 mg IVP Q6H PRN PRN Reason: Nausea &/or vomiting Last Admin: 05/06/18 20:43 Dose: 4 mg Pantoprazole Sodium (Protonix Iv) 40 mg IVP Q12H [facility] Last Admin: 05/06/18 20:43 Dose: 40 mg Ranolazine (Ranexa) 500 mg PO DAILY [facility] Last Admin: 05/06/18 08:18 Dose: 500 mg Senna (Senna Lax) 8.6 mg PO DAILY [facility] Last Admin: 05/06/18 08:18 Dose: 8.6 mg Sodium Chloride (Iv Flush) 10 - 80 ml IVF PRN PRN PRN Reason: Flushing Last Admin: 05/06/18 08:17 Dose: 10 ml Home Medications: Home Medications Medication Instructions Recorded Confirmed Type Albuterol HFA Inhaler [Ventolin 1 puff ORAL INH QID PRN 05/04/18 05/04/18 History Hfa 90 mcg/actuation] Aspirin [Adult Aspirin Regimen] 81 mg PO DAILY 05/04/18 05/04/18 History Clopidogrel [Plavix] 75 mg PO DAILY 05/04/18 05/04/18 History Gabapentin [Neurontin] 600 mg PO TID 05/04/18 05/04/18 History Hydrocodone/Acetaminophen 1 tab PO Q4H PRN 05/04/18 05/04/18 History [Hydrocodon-Acetaminophn 10-325] Hydromorphone [Dilaudid] 1 - 2 mg PO Q2H PRN 05/04/18 05/04/18 History Morphine Sulfate 30 mg PO BID PRN 05/04/18 05/04/18 History Nitroglycerin [Nitrostat] 0.4 mg SL Q5M PRN 05/04/18 05/04/18 History Ondansetron [Zofran Odt] 8 mg PO TID 05/04/18 05/04/18 History Polyethylene Glycol 3350 17 gm PO DAILY 05/04/18 05/04/18 History Ranolazine SR [Ranexa] 500 mg PO DAILY 05/04/18 05/04/18 History Sennosides [Senna] 8.6 mg PO DAILY 05/04/18 05/04/18 History Is Patient on Beta Sunny?: No - Medical History Respiratory: Reports: Chronic Obstructive Pulmonary Disease (COPD), Dyspnea ( with exertion), Pneumonia DENIES: Sleep Apnea Cardiovascular: Reports: Angina (Daily), Congestive Heart Failure (35 EF), Coronary Artery Disease, High Cholesterol, Myocardial Infarction (3 MIs, 07/2017 ), Other (triple bypass 1999) Gastrointestional: Reports: Nausea or Vomiting Present, Ulcer Neuro/Musculoskeletal: Reports: Back Problems (degenerative disc disease), Muscle Weakness Renal/Endocrine: Reports: Weight Loss (not on purpose recently) Other History: Reports: Blood Transfusions - Surgical History HEENT Surgeries: Reports: Eye Surgery Cardiac Surgeries/Treatments: Reports: Cardiac Catheterization (11), Pacemaker ( that is disconnected now) Respiratory Surgery/Treatments: Reports: Oxygen Administration (O2 @2L at home) GI Surgery/Treatments: Reports: Colonoscopy Anesthesia Reactions: None Hx Family Anesthesia Reaction: No History of Motion Sickness: No - Social History Smoking Status: Current every day smoker Packs per day: 0.5 Pack-years: 40 Second Hand Exposure: Yes Substance Use Type: does not use Alcohol Intake Frequency: does not drink - Pertinent Findings Laboratory: CBC and BMP 05/07/18 03:53 05/07/18 03:53 BMP 05/07/18 03:53 Sodium 140 Potassium 3.7 D Chloride 103 D Carbon Dioxide 30 BUN 11.0 Creatinine 1.1 Glucose 84 Calcium 8.7 EKG: Sinus Rhythm - Physical Exam Respiratory Exam: Present: lungs clear, bilateral breath sounds equal, decreased breath sounds-L, decreased breath sounds-R Cardiovascular Exam: Present: regular rate and rhythm, no murmur - Airway Assessment Mallampati Score: I TMD: 3 Fingerbreadths Neck Extension: good Teeth: poor dentation Overall Assessment: no airway concerns - ASA ASA Score: 4 - Plan Anesthesia: MAC - Discussion Discussion: Discussed risks/options/alternatives of anesthesia and questions answered. Patient consents. Nursing pain assessment noted. Present for Discussion: spouse Attestation Statement: Prior to the delivery of any anesthetic medication, I examined the patient, developed the plan, obtained the patient's consent and discussed the risk and benefits of the procedure with the patient/guardian. - Additional Information Seen by Anesthesia: Yes
[2018-05-07] MEDS ORDERED: LIDOCAINE VISCOUS 2% ORAL LIQUID 15ml ONE (08:42)
[2018-05-07] MEDS ORDERED: NS 1,000 ML IV SCH (08:45)
[2018-05-07] MEDS ORDERED: BENZOCAINE 20% SPRAY 0.5 ML ONE (08:49)
[2018-05-07] MEDS ORDERED: MIDAZOLAM 2mg/2ml INJECTION ONE (08:49)
[2018-05-07] MEDS ORDERED: SALINE FLUSH 10ml SYRINGE ONE (08:50)
[2018-05-07] MEDS ORDERED: KETAMINE 500 MG/10 ML INJECTION ONE (08:50)
[2018-05-07] MEDS ORDERED: ALFENTANIL 1000mcg/2ml INJECTION IVP ONE (09:00)
--- NOTE | 2018-05-07 09:07 | General Surgery Procedure Note ---
Date of Procedure: 05/07/18 Surgeon: Souleymane Postoperative Diagnosis: Duodenal ulcer Procedure: EGD Estimated Blood Loss: See Anesthesia Record.
--- NOTE | 2018-05-07 09:15 | Anesthesia Postoperative Note ---
- Date and Time Date: 05/07/18 Time: 09:15 - Status Patient Participated in Evaluation: Patient Participated in Person Vital Signs: Temperature 97.5 F 05/07/18 09:06 Pulse Rate 100 05/07/18 09:10 Respiratory Rate 13 05/07/18 09:10 Blood Pressure 140/76 H 05/07/18 09:10 Pulse Oximetry 100 05/07/18 09:10 Respiratory Function: Airway Patent, Regular Respirations Cardiovascular Function: Regular Pulse EKG: Sinus Rhythm Mental Status: Alert and Oriented Pain Intensity: 0 Hydration: IV Infusing Complications During Recover: None Apparent - Follow-Up Instructions Instructions: Per Surgeon
[2018-05-07] MEDS: RANOLAZINE 500 MG PO SCH (10:26)
[2018-05-07] MEDS: PANTOPRAZOLE 40 MG INJECTION IVP SCH ×2 (10:27→20:48)
[2018-05-07] MEDS: GABAPENTIN 600 MG TABLET PO SCH ×3 (10:27→20:48)
[2018-05-07] MEDS: SENNOSIDES 8.6 MG TABLET PO SCH (10:27)
[2018-05-07] MEDS: NICOTINE PATCH REMOVAL TD SCH (10:28)
--- NOTE | 2018-05-07 13:40 | Operative Note ---
DATE OF OPERATION 05/07/2018 PREOPERATIVE DIAGNOSIS Melena. POSTOPERATIVE DIAGNOSES 1. Melena. 2. Duodenal ulcer. OPERATION Esophagogastroduodenoscopy SURGEON Christian Comer MD ANESTHESIA MAC ASA CLASS 4 FINDINGS The esophagus appeared normal. There was no distal esophagitis. There were no esophageal erosions or ulcers. There was no source for upper gastrointestinal tract bleeding at the esophagus. The stomach appeared normal. There was no gastritis. There were no gastric erosions or ulcers. No source for upper gastrointestinal tract bleeding was seen at the stomach. The patient does have a duodenal ulcer. This is at the posterior margin of the duodenal bulb. There was white fibrinous exudate at the base of the ulcer. There was no active bleeding from the ulcer. Margins of the ulcer were inflamed and friable. When the upper GI endoscope was introduced through the duodenum beyond the ulcer, this did start some bright red bleeding from around margins of the ulcer at the friable mucosa around the margins of this duodenal ulcer. This bright red bleeding did stop spontaneously. This was caused by passage of the upper GI endoscope against the ulcer. The patient did just have that one duodenal ulcer. DESCRIPTION OF OPERATION The patient was brought to the cystoscopy room. The patient was placed on a cart in the cystoscopy room. The patient was placed in left lateral recumbent position on the cart. The patient was premedicated with intravenous sedation medication administered by the nurse bridge engineer. The Olympus upper GI endoscope was used. The upper GI endoscope was introduced into the esophagus. The upper GI endoscope was advanced down through the esophagus and stomach and into the duodenum. The upper GI endoscope was then advanced down through the duodenum beyond the level of the duodenal bulb to the postbulbar duodenum. The upper GI endoscope was then withdrawn out back out through the duodenum. As the upper GI endoscope was being withdrawn out through the duodenum, some bleeding was noted from around margins of the duodenal ulcer. This area was irrigated. The bleeding did stop spontaneously. The ulcer was examined. The upper GI endoscope was then withdrawn out through the duodenum and through the pylorus back into the stomach. The cold endoscopic biopsy forceps was used to obtain a sample of prepyloric antral gastric mucosa which was submitted for MESSI test studies. The upper GI endoscope was retroflexed and the gastroesophageal junction was viewed from below. The upper GI endoscope was straightened out. Stomach was examined further. The upper GI endoscope was then withdrawn out through the stomach and esophagus and removed from the patient. Findings throughout procedure were as described above. The patient did continue to receive intravenous sedation medication administered by the nurse bridge engineer throughout the operation. The patient did tolerate the operation well. PARUL
--- NOTE | 2018-05-07 15:56 | Progress Note ---
- Date 05/07/18 Subjective: History Day is seen this afternoon following EGD. He was found to have a duodenal ulcer that is likely the explanation of his GI bleed and anemia. Overall he is feeling good. He has had no further episodes of acute bleeding. He has tolerated oral intake postoperatively. Nice having pain, shortness of breath, nausea or epigastric tenderness. Hgb stable at 11.2, hemodynamically appears to be stable. Objective Vital signs: Temperature 98.1 F 05/07/18 13:40 Pulse Rate 70 05/07/18 13:40 Respiratory Rate 16 05/07/18 13:40 Blood Pressure 130/69 05/07/18 13:40 Pulse Oximetry 99 05/07/18 13:40 Height/Weight/BMI: Height 1.78 m Weight 52.9 kg Body Mass Index 24.7 - Constitutional Present: no acute distress, well nourished, well developed - Routine HEENT Exam Eye: Present: EOMI ENT: Present: mucous membranes moist, dentition normal - Routine Respiratory Exam Present: CTA bilaterally. Absent: wheezes - Routine Cardiovascular Exam Present: RRR. Absent: murmur - Routine Abdominal Exam Present: soft, normoactive bowel sounds, non distended. Absent: tenderness - Routine Extremities Exam Present: no edema - Routine Back/Spine/Pelvis Exam Back/Spine: Present: full ROM - Routine Skin Exam Present: intact, dry, warm - Routine Neurological Exam Present: alert, oriented X3, CN II-XII intact, moving all extremities - Routine Lymphatic Exam Lymphatic: Absent: adenopathy - Routine Psychiatric Exam Present: normal affect, normal thought process, cooperative Results - Labs CBC & Chem 7: 05/07/18 19:38 05/07/18 03:53 Assessment and Plan Assessment and Plan: Assessment GI bleed 1. Renal ulcer ABLA, macrocytic anemia End stage CHF, ischemic cardiomyopathy, CAD - on hospice until 05/04/18 PVD COPD on 2L O2 continuously Chronic back pain d/t DDD Hx of bleeding ulcer, ~2014 Tobacco use 05/07/18- Tolerated EGD well by Dr. Comer. Acute findings of duodenal ulcer Patient is tolerating oral intake without difficulty. Hemoglobin remains stable at 11.2. We discussed discharge plan. Will recommend continuing off of home Plavix and aspirin. Patient does verbalize that he had previously stopped both of these as he was looking more at a hospice-type comfort care management. We did discuss with the severity of his coronary artery disease, it would be up to him and his primary care provider if he wanted to continue these at sometime down the road. We would recommend that patient be placed on a PPI routinely at time of discharge. Will make sure the patient tolerates intake. Today, the hemoglobin remained stable overnight. Hopeful for discharge in the near future 05/07/2018-8:20 PM-I examined the patient independently. I reviewed this chart, the patient history, and the LINES TENDER's/PA's documented findings as above. We discussed and formulated the assessment and plan as above with the additions below.-Dr. Emanuel Patient was seen this evening in his room. He denies any abdominal pain. He denies shortness of breath. He ate well today. On exam he is alert and in no acute distress. Chest is clear to auscultation. Cardiovascular reveals a regular rate and rhythm. Abdomen is soft and nontender. Extremities are free of edema. Impression and plan GI bleed secondary to duodenal ulcer-aspirin and Plavix are currently on hold. He is currently on Protonix IV. Can likely change to by mouth tomorrow. Will add Carafate. Ideally, Dr. Comer (surgery) would like him to be off aspirin and Plavix for 2 months. He would be at increased risk for coronary event off of aspirin and Plavix. Would recommend we get Dr. Glasogw's (cardiology) input. Patient will need to understand the risks and benefits of either resuming aspirin and/or Plavix before 2 months time as well as the risks and benefits of being off of aspirin and Plavix for 2 months. - Physician Narrative Narrative: Date: 05/07/18 Time: 1552 Hospital Course Summary Disclaimer: The visit summary below is not to be considered part of the above Progress Note. Hospital Course: 05/04/18 1. Acute abdominal pain and likely GI bleed--hydrate with repeat AM labs and may need CT and gen surgery eval in the AM. Heme test stools and dose PPI IV. Clear liquids only with prns. 2. CAD and ischemic CM--hold asa and plavix, continue other meds. On hospice for this. 3. COPD--prn nebs with no routine Spiriva, other. 4. Acute blood loss anemia with macrocytosis noted. With other lineages ok will check B12. 5. Tobacco abuse, ongoing. Prn nicotine 6. Chronic back pain with opioid dependence DNR 05/05/18 Admit, inpt status under the hosp service. Clear liquid diet. Consult Dr. Comer (discussed case with him). Hold ASA, Plavix. Trend hgb. Vit B12 ordered d/t macrocytosis. Protonix BID. DC IVF d/t significant cardiac hx. Resume meds for angina/chronic pain. Pt declined tobacco cessation. Nicotine patch PRN. Neb treatments PRN. Call placed to Dr. Lisa's office in [place] for more information regarding his medical diagnoses and to determine overall risk for anesthesia in the event EGD is indicated. DNR status. Hospice care revoked to treat this acute condition but likely will inquire about re-enrolling upon discharge. Note: Pacemaker has been deactivated. 05/06/18 Hgb monitored- remains stable at 10.8 No active bleeding. ASA and Plavix remains on hold Remains on BID Protonix for GI protection He was seen by cardiology today and patient does understand increased risk of endoscopic procedure given severity of coronary artery distress Will wait to see recommendations by Dr Comer regarding plan for endoscopy Monitor for active GI bleeding Continue on chronic medications and oxygen. Case discussed with attending Dr Emanuel 05/07/18 Tolerated EGD well by Dr. Comer. Acute findings of duodenal ulcer Patient is tolerating oral intake without difficulty. Hemoglobin remains stable at 11.2. We discussed discharge plan. Will recommend continuing off of home Plavix and aspirin. Patient does verbalize that he had previously stopped both of these as he was looking more at a hospice-type comfort care management. We did discuss with the severity of his coronary artery disease, it would be up to him and his primary care provider if he wanted to continue these at sometime down the road. We would recommend that patient be placed on a PPI routinely at time of discharge. Will make sure the patient tolerates intake. Today, the hemoglobin remained stable overnight. Hopeful for discharge in the near future
[2018-05-07] MEDS: SALINE FLUSH 10ml SYRINGE IVF PRN (16:44)
[2018-05-07 19:05] VITALS: BMI 16.7
[2018-05-07] MEDS: SUCRALFATE 1 GM TABLET PO SCH (22:40)
[2018-05-08] MEDS: HYDROMORPHONE 2 MG/ML INJECTION IVP PRN ×4 (00:54→13:33)
[2018-05-08] MEDS: SUCRALFATE 1 GM TABLET PO SCH ×2 (05:41→11:50)
[2018-05-08] MEDS: PANTOPRAZOLE 40 MG INJECTION IVP SCH (09:53)
[2018-05-08] MEDS: RANOLAZINE 500 MG PO SCH (09:54)
[2018-05-08] MEDS: NICOTINE PATCH REMOVAL TD SCH (09:54)
[2018-05-08] MEDS: SENNOSIDES 8.6 MG TABLET PO SCH (09:54)
[2018-05-08] MEDS: GABAPENTIN 600 MG TABLET PO SCH ×2 (09:54→15:10)
[2018-05-08] MEDS: SALINE FLUSH 10ml SYRINGE IVF PRN (09:54)
--- NOTE | 2018-05-08 11:32 | Discharge Summary ---
Discharge Information Date of admission: 05/04/18 22:42 Anticipated date of discharge: 05/08/18 Attending Physician: Annalise Echavarria MD Primary care physician: Giuliana Cardona MD Consults: Dr Christian Comer- General surgeon Dr Dmitri Glasgow- Cardiology GI bleed- resolved Duodenal ulcer ABLA, macrocytic anemia End stage CHF, ischemic cardiomyopathy, CAD - on hospice until 05/04/18 PVD COPD on 2L O2 continuously Chronic back pain d/t DDD Hx of bleeding ulcer, ~2014 Tobacco use - Procedures Procedures: 05/07/18-EGD by Dr. Comer - Laboratory Labs: 05/08/18 04:09 05/08/18 04:09 - Microbiology Microbiology 05/07/18 09:15 Gastric Biopsy Helicobacter pylori Rapid Urease - Final - Radiology Radiology: 05/05/18-chest x-ray Impression: 1. Postop changes of previous coronary artery bypass grafting and a permanent pacemaker without acute cardiac decompensation. 2. Mildly hyperaerated but clear lungs 05/05/18- ECHO 1. Moderate reduction of LV systolic function. Estimated LVEF of 35-40%. 2. Normal RV systolic function. 3. Moderate mitral regurgitation. 4. Significantly elevated pulmonary artery systolic pressure with estimated pulmonary artery systolic pressure of 50-55 mmHg. - Pathology None History of Present Illness HPI: Jhoan Morales is a 68 y/o male who has been on hospice services for the last 15 mos. for CAD, CHF, and COPD. He has lived in [facility] for the last 2 years but prior to that was living in [place]. He reports having 4 black, tarry stools over the last 3 days. He tends to be constipated at baseline. He's also had lower abdominal burning. He has had nausea/vomiting without hematemesis. He's felt weak, dizzy but denies syncope. He has a chronic "smoker's cough" and actually his sputum has now changed to clear (previously was green/yellow). He has chronic SOA and that is unchanged. He is on 2L of O2 continuously though admits he sometimes takes it off during the day. He frequently has chest pain and takes NTG. He has chronic low back pain secondary to DDD. He's lost about 40 lbs in the last 6 mos. ROS was otherwise negative: No visual changes, headaches , sinus drainage, GERD, leg/joint swelling, rashes/wounds, falls, urinary pain/ retention/frequency, unexplained bruising, anxiety/depression, sweating, fevers/ chills, palpitations. He has had 2 previous GI bleeds in the past including an ulcer around 2014. He states that he wishes to come off hospice and be treated for GI bleed with transfusions/procedures as indicated. He presented to [facility] ED for evaluation. Hgb on admit was 11.4 and by the following morning trended down to 9.9. Labs otherwise were unremarkable. He was admitted as an inpt to [facility] via the telehosp service -- please refer to the initial H&P for more information. Objective Vital signs: Temperature 98.1 F 05/08/18 07:20 Pulse Rate 64 05/08/18 07:20 Respiratory Rate 16 05/08/18 09:56 Blood Pressure 108/67 05/08/18 07:20 Pulse Oximetry 98 05/08/18 07:20 Height/Weight/BMI: Height 1.78 m Weight 55.6 kg Body Mass Index 16.7 - Constitutional Present: well nourished, well developed - Routine HEENT Exam Eye: Present: EOMI ENT: Present: mucous membranes moist, dentition normal - Routine Respiratory Exam Present: CTA bilaterally. Absent: wheezes - Routine Cardiovascular Exam Present: RRR, S1, S2. Absent: murmur - Routine Abdominal Exam Present: soft, normoactive bowel sounds, non distended. Absent: tenderness - Routine Extremities Exam Present: normal capillary refill - Routine Skin Exam Present: dry, warm - Routine Neurological Exam Present: alert, oriented X3, CN II-XII intact - Routine Lymphatic Exam Lymphatic: Absent: adenopathy - Routine Psychiatric Exam Present: normal affect Hospital Course This is a general summary of the patient's hospital course. For more details refer to the complete medical record. Hospital course: 05/04/18 1. Acute abdominal pain and likely GI bleed--hydrate with repeat AM labs and may need CT and gen surgery eval in the AM. Heme test stools and dose PPI IV. Clear liquids only with prns. 2. CAD and ischemic CM--hold asa and plavix, continue other meds. On hospice for this. 3. COPD--prn nebs with no routine Spiriva, other. 4. Acute blood loss anemia with macrocytosis noted. With other lineages ok will check B12. 5. Tobacco abuse, ongoing. Prn nicotine 6. Chronic back pain with opioid dependence DNR 05/05/18 Admit, inpt status under the hosp service. Clear liquid diet. Consult Dr. Comer (discussed case with him). Hold ASA, Plavix. Trend hgb. Vit B12 ordered d/t macrocytosis. Protonix BID. DC IVF d/t significant cardiac hx. Resume meds for angina/chronic pain. Pt declined tobacco cessation. Nicotine patch PRN. Neb treatments PRN. Call placed to Dr. Cardona's office in [place] for more information regarding his medical diagnoses and to determine overall risk for anesthesia in the event EGD is indicated. DNR status. Hospice care revoked to treat this acute condition but likely will inquire about re-enrolling upon discharge. Note: Pacemaker has been deactivated. 05/06/18 Hgb monitored- remains stable at 10.8 No active bleeding. ASA and Plavix remains on hold Remains on BID Protonix for GI protection He was seen by cardiology today and patient does understand increased risk of endoscopic procedure given severity of coronary artery distress Will wait to see recommendations by Dr Comer regarding plan for endoscopy Monitor for active GI bleeding Continue on chronic medications and oxygen. Case discussed with attending Dr Emanuel 05/07/18 Tolerated EGD well by Dr. Comer. Acute findings of duodenal ulcer Patient is tolerating oral intake without difficulty. Hemoglobin remains stable at 11.2. We discussed discharge plan. Will recommend continuing off of home Plavix and aspirin. Patient does verbalize that he had previously stopped both of these as he was looking more at a hospice-type comfort care management. We did discuss with the severity of his coronary artery disease, it would be up to him and his primary care provider if he wanted to continue these at sometime down the road. We would recommend that patient be placed on a PPI routinely at time of discharge. Will make sure the patient tolerates intake. Today, the hemoglobin remained stable overnight. Hopeful for discharge in the near future 05/08/18- Discharge Jhoan is seen and examined today prior to discharge. Besides his chronic lumbar back pain. He is feeling good. His appetite has been great without any nausea or abdominal pain. No bloody stools. We discussed in depth regarding his discharge planning. It is recommended that he stay off of Plavix and aspirin and discuss this further in the outpatient setting with his primary care provider, Dr. Cardona. Patient verbalizes that he plans to stop it indefinitely as he is planning to return to a comfort care/hospice type of plan. We did recommend that he continue on Carafate with meals and at bedtime as well as Protonix 40 milligrams twice a day both medications for at least 1 month for GI protection and he is in agreement to this plan. Patient will continue on his his baseline home oxygen. He is encouraged to follow-up with primary care provider, Dr. Rosi Cardona in the next 1 week. Discharged in stable condition. Time spent with patient: greater than 35 minutes Resuscitation Status: Do Not Resuscitate Discharge Plan - Discharge Disposition Discharge Date: 05/08/18 Disposition: 01 Discharged Home, Self-Care *Condition: Stable Reason For Visit (Visit label in EMR): GI Bleed, duodenal ulcer - Discharge Medications *Discharge Medications: New Sucralfate [Carafate] 1 gm PO ACHS #120 tab Nicotine Patch [Nicoderm] 14 mg TD DAILY PRN #10 patch PRN Reason: nicotine Pantoprazole Tab [Protonix Tab] 1 tab PO ACBID #30 tab Continue Albuterol HFA Inhaler [Ventolin Hfa 90 mcg/actuation] 1 puff ORAL INH QID PRN PRN Reason: Shortness Of Air/Wheezing Sennosides [Senna] 8.6 mg PO DAILY Ranolazine SR [Ranexa] 500 mg PO DAILY Ondansetron [Zofran Odt] 8 mg PO TID Nitroglycerin [Nitrostat] 0.4 mg SL Q5M PRN PRN Reason: Chest Pain Hydromorphone [Dilaudid] 1 - 2 mg PO Q2H PRN PRN Reason: Pain Hydrocodone/Acetaminophen [Hydrocodon-Acetaminophn 10-325] 1 tab PO Q4H PRN PRN Reason: Pain Morphine Sulfate 30 mg PO BID PRN PRN Reason: Pain Gabapentin [Neurontin] 600 mg PO TID Changed Polyethylene Glycol 3350 17 gm PO DAILY PRN #0 PRN Reason: constipation Discontinued Clopidogrel [Plavix] 75 mg PO DAILY Aspirin [Adult Aspirin Regimen] 81 mg PO DAILY - Discharge Packet/Instructions *Diet: Regular *Activity: Activity as tolerated *Pain Management/Treatment: Previous home pain medication including MS Contin and PO Dilaudid *Wound Care: N/A Additional Instructions: Stop Plavix and aspirin. Need to discuss with primary care provider if you decide to resume these medications. Take Carafate with meals and at bedtime for 1 month, take Protonix 40 milligrams twice a day for 1 month *Expected Signs/Symptoms: Improvement in symptoms, improved GI bleeding *Notify Physician if: Lightheaded, dizzy, blood in stools, chest pain or other concerning symptoms *During Business Hours Contact: Dr. Cardona *After Business Hours Contact: Dr Cardona, or present to the emergency room *Pending Lab/Results: No Pending Lab - Referrals/Follow Up *Referrals/Follow Up: Giuliana Cardona MD [Primary Care Provider] - 1 Week (follow up in 1 WEEK CALL AND SCHEDULE APPOINTMENT TO BE SEEN IN ONE WEEK WITH DR. CARDONA) - Patient Handouts Patient Handouts: Gastrointestinal Bleeding (GEN) - Dismissal Complete Discharge Instructions are:: Complete Physician Narrative - Narrative Physician: other (Annalise Echavarria MD) Attestation Narrative: Date: 05/08/18 Time: 1129 I have independently interviewed and examined patient. Patient chart reviewed. Case discussed with my EXCHANGE ADMINISTRATOR. Care plan developed with my supervision, agree with above. A pleasant 68-year-old male patient with history of CAD, ischemic cardiomyopathy , end-stage CHF and earlier on hospice was admitted to hospital with acute GI bleeding. Endoscopy showed evidence of duodenal ulcer. Patient also received nicotine patch during hospital stay with history of tobacco use. Aspirin and Plavix all medications were held, at the time of discharge, patient verbalized that he would not want to be on any blood thinner medicines. With evidence of duodenal ulcer, patient started on oral Protonix and Carafate. At the time of discharge, patient opted to be back under hospice care.
[2018-05-08 12:02] VITALS: BP 143/69; PULSE 85; RESP 18; TEMP 98.2; O2SAT 95
[2018-05-08] MEDS: HYDROMORPHONE 2 MG TABLET PO PRN (12:46)
== END 2018-05-08 15:33 | disposition home or self-care (01) | DRG 378 ==
LOC: ED 20:24 → SUATTDRO 22:42 → EDHOLD 22:42 → MED 23:05
PROVIDERS: ADMIT Hospitalist; ATTEND Internal Medicine
PROC: END.EGD (2018-05-07 08:30)